=== PATIENT | male | born 1965 | race Caucasian/White ===

== ENCOUNTER → 2018-03-17 12:30 | Outpatient (CLI) | payer BC, SELFPAY ==
--- NOTE | 2018-03-17 12:30 | TISS_PTH ---
PATIENT: GODFREY BRASHER LOC: [facility] U#:[id number] AGE/SX: 59/M ROOM: RE03/17/[address]: Dr. Azam Lezama DDS : 1965 BED: DIS: SPEC #: [id number] RECD: 03/17/18 14:18 STATUS: RIAN EWA #: [id number] GUADALUPE: 03/17/18 12:[address]: Azam Lezama DEPT: SURGICAL PATHOLOGY RECD BY: Malka Guthrie Tissues: Buccal mucosa, NOS Procedures: Special Stain Group I Surgery Specimen Level IV GMS Stain (control) HEADER OPERATION: Biopsy gum tissue right side PRE-OP DIAGNOSIS: White-red tissue TISSUE SUBMITTED: Buccal gingival tissue MICROSCOPIC DIAGNOSIS Buccal gingival tissue, biopsy: A piece of squamous mucosa with chronic inflammation, pseudoepitheliomatous hyperplasia and hyperkeratosis. Superficial acute inflammation and bacterial colonization consistent with actinomyces. Negative for malignancy. Special stain for fungi is negative for organisms; matched control is appropriate. FABIANA:deana 03/20/18 COMMENT Clinical correlation and appropriate follow up are necessary. MICROSCOPIC DESCRIPTION Slides are reviewed. GROSS DESCRIPTION Received in fixative is one container labeled with the patient's name and designated buccal gingival tissue. The specimen consists of one irregular fragment of light randle soft tissue that measures 1 x 0.2 x 0.1 cm. The specimen is totally submitted in one cassette. / AM:deana 03/17/18 TC:5 CPT: 24935, 55879
== END ==
PROVIDERS: Referring Provider Dentist Oral and Maxillofacial Surgery; Visit Provider Dentist Oral and Maxillofacial Surgery
DX: L57.0 Actinic keratosis (principal)
CPT/HCPCS: 88305; 88312